=== PATIENT | male | born 1995 | race African-American/Black ===

== ENCOUNTER 2020-06-26 20:42 | Emergency (ER) | payer SELFPAY ==
[~2020-06-26] VITALS: Ht 170.2 cm; Wt 99.0 kg
[2020-06-26] MEDS ORDERED: IV RINGERS SOLUTION,LACTATED 1,000 ML IV SCH (21:01)
--- NOTE | 2020-06-26 21:01 | PHYS DOC ---
Past History Past Medical History: Anxiety Smoking: Cigarettes Alcohol Use: Occasionally Drug Use: Marijuana, Methamphetamine General Adult EDM: Chief Complaint: ANXIETY/PANIC ATTACK HPI: HPI: "I get panic attacks and anxiety but this 1 to been longer than usual I have even had some vomiting...' I usually do not go to a doctor or to the emergency room for these panic attacks have had them off and on since May..." Patient is a 24 year old male who presents with above hx and complaints of anxiety, feelings of shortness of breath, chest pain, chest tightness, nausea and vomiting. Patient denies any intake of bad food. No specific ill contacts. No history of trauma. Patient does smoke tobacco and marijuana frequently. Patient sent in to the ER to be evaluated by his mother. No recent travel outside the [place] area. No sick ill contacts. Patient does not have a specific trigger for his panic attacks Review of Systems: Review of Systems: Constitutional: Denies fever or chills Eyes: Denies change in visual acuity HENT: Denies nasal congestion or sore throat Respiratory: Complains of r shortness of breath Cardiovascular: Complains of chest pain, tightness GI: Denies abdominal pain,. Complains of nausea, vomiting,. Denies bloody stools or diarrhea : Denies dysuria Musculoskeletal: Denies back pain or joint pain Integument: Denies rash Neurologic: Denies headache, focal weakness or sensory changes Endocrine: Denies polyuria or polydipsia Lymphatic: Denies swollen glands Psychiatric: Complains of severe anxiety, panic attacks Heart Score: HEART Score for Chest Pain: HEART Score for Chest Pain Response (Comments) Value History Slighlty/Non-Suspicious 0 ECG Nonspecific Repolarizatio 1 Age < 45 0 Risk Factors 1 or 2 Risk Factors 1 Troponin < Normal Limit 0 Total 2 Risk Factors: Risk Factors: DM, Current or recent (<one month) smoker, HTN, HLP, family history of CAD, obesity. Risk Scores: Score 0 - 3: 2.5% MACE over next 6 weeks - Discharge Home Score 4 - 6: 20.3% MACE over next 6 weeks - Admit for Clinical Observation Score 7 - 10: 72.7% MACE over next 6 weeks - Early Invasive Strategies Family History: Family History: Noncontributory Current Medications: Current Meds: See nursing for home meds Allergies: Allergies: Allergic to shellfish Physical Exam: PE: Constitutional: In acute emotional distress, non-toxic appearance. [] HENT: Normocephalic, atraumatic, bilateral external ears normal, oropharynx moist, no oral exudates, nose normal. [] Eyes: PERRLA, EOMI, conjunctiva normal, no discharge. [] Neck: Normal range of motion, no tenderness, supple, no stridor. [] Cardiovascular: Tachycardia heart rate regular rhythm, no murmur [] Lungs & Thorax: Bilateral breath sounds equal apex with scattered wheezes on auscultation [] Abdomen: Bowel sounds normal, soft, no tenderness, no masses, no pulsatile masses. [] Skin: Warm, dry, no erythema, no rash. [] Back: No tenderness, no CVA tenderness. [] Extremities: No tenderness, no cyanosis, no clubbing, ROM intact, no edema. [] No cording appreciated Neurologic: Alert and oriented X 3, normal motor function, normal sensory function, no focal deficits noted. [] Psychologic: Affect very anxious, judgement normal, mood normal. [] EKG: EKG: My interpretation EKG shows a sinus tachycardia at 108 bpm. No findings of acute STEMI with contralateral changes. [] Radiology/Procedures: Radiology/Procedures: [place] [address] IMAGING REPORT Signed PATIENT: XANDER VANN ACCOUNT: [id number] : 1995 LOCATION: ER AGE: 24 SEX: M EXAM STATUS: REG ER ORD. PHYSICIAN: ANGELIC PATHAK MD REASON: OMNI 240, 30ML PO. LEFT FLANK PAIN PROCEDURE: CT ABD PEL W/ORAL CONTRST ONLY CT abdomen and pelvis without contrast: Reason for examination: Left flank pain. Helical images were obtained through the abdomen pelvis with no intravenous contrast administered. 30 cc of oral Omnipaque 240 was administered. Reconstruction was performed in sagittal and coronal planes. Exposure: One or more of the following individualized dose reduction techniques were utilized for this examination: 1. Automated exposure control 2. Adjustment of the mA and/or kV according to patient size 3. Use of iterative reconstruction technique. The lung bases are clear. The heart size is normal with no pericardial effusion. No focal abnormalities are seen at the liver, spleen, adrenal glands, gallbladder or pancreas. The abdominal aorta and inferior vena cava show no acute abnormalities. No abnormality seen at the appendix. There appear to be diverticuli in the colon but no diverticulitis or colitis is seen. The small intestinal tract shows no abnormal dilatation or wall thickening and there is no obstruction. No abnormality seen at the stomach. The kidneys show no renal masses, renal calculi, hydronephrosis or evidence of obstructive uropathy. No abnormality seen at the bladder, prostate gland or seminal vesicles. There is no evidence of free fluid or free air in the abdomen or pelvis. No acute bony abnormalities are seen. IMPRESSION: Diverticuli in the colon but no evidence of diverticulitis. No renal calculi or obstructive uropathy. No other focal abnormality seen in the abdomen or pelvis. Electronically signed by: Kristi Grove MD (06/27/2020 1:26 AM) [facility] DICTATED AND SIGNED BY: KRISTI GROVE MD DATE: 06/27/20125 CC: ANGELIC PATHAK MD; PCP,NO ~ [[address] [address] IMAGING REPORT Signed PATIENT: EDWARXANDER Paz ACCOUNT: [id number] : 1995 LOCATION: ER AGE: 24 SEX: M EXAM STATUS: REG ER ORD. PHYSICIAN: ANGELIC PATHAK MD REASON: chest tightness PROCEDURE: PORTABLE CHEST 1V Exam: Chest one view INDICATION: Chest tightness TECHNIQUE: Frontal view of the chest Comparisons: None FINDINGS: The cardiomediastinal silhouette and pulmonary vessels are within normal limits. The lung and pleural spaces are clear. IMPRESSION: No acute cardiopulmonary process. Electronically signed by: Ibeth Tena MD (06/26/2020 10:13 PM) [facility] DICTATED AND SIGNED BY: IBETH TENA MD DATE: 06/26/20 0647 CC: ANGELIC PATHAK MD; PCP,NO ~ ][address] [address] IMAGING REPORT Signed PATIENT: XANDER VANN ACCOUNT: [id number] : 1995 LOCATION: ER AGE: 24 SEX: M EXAM STATUS: REG ER ORD. PHYSICIAN: ANGELIC PATHAK MD REASON: chest tightness PROCEDURE: PORTABLE CHEST 1V Exam: Chest one view INDICATION: Chest tightness TECHNIQUE: Frontal view of the chest Comparisons: None FINDINGS: The cardiomediastinal silhouette and pulmonary vessels are within normal limits. The lung and pleural spaces are clear. IMPRESSION: No acute cardiopulmonary process. Electronically signed by: Ibeth Tena MD (06/26/2020 10:13 PM) [facility] DICTATED AND SIGNED BY: IBETH TENA MD DATE: 06/26/202212 CC: ANGELIC PATHAK MD; PCP,NO ~ Course & Med Decision Making: Course & Med Decision Making Pertinent Labs and Imaging studies reviewed. (See chart for details) Pt. to stay on clear fluid diet x 48 hrs. No solids or milk products. Must allow bowel rest. Avoid illicit drug use. Tylenol ibuprofen for pain. Follow- up labs with primary care. Keflex 500 mg 3 times a day for 7 days. Use MDI 2 puffs 4 times a day. Stop smoking. Impression: 1. Anxiety 2. Chest pain 3. Nausea and vomiting 4. Tobacco , marijuana, methamphetamine 5. Dehydration Creat 2.2/BUN 31. 6. Leukocytosis 17.6 7. Elevated Alk Phos, ALt 136/84 8. Bronchitis [] Dragon Disclaimer: Alley Disclaimer: This electronic medical record was generated, in whole or in part, using a voice recognition dictation system. Departure Departure: Disposition: HOME/RESIDENCE PRIOR TO ADM Condition: STABLE Referrals: PCP,MAGALYS (PCP) Scripts Cephalexin (KEFLEX) 500 Mg Capsule 500 MG PO TID for bronchitis for 7 Days, BOTTLE Prov: ANGELIC PATHAK MD 06/27/20 Alley Disclaimer This chart was dictated in whole or in part using Voice Recognition software in a busy, high-work load, and often noisy Emergency Department environment. It may contain unintended and wholly unrecognized errors or omissions. ANGELIC PATHAK MD Jun 26, 2020 21:01
[2020-06-26] MEDS ORDERED: ASPIRIN CHEWABLE 81 MG TABLET. PO ONE (21:15)
--- NOTE | 2020-06-26 22:16 | RAD ---
Exam: Chest one view INDICATION: Chest tightness TECHNIQUE: Frontal view of the chest Comparisons: None FINDINGS: The cardiomediastinal silhouette and pulmonary vessels are within normal limits. The lung and pleural spaces are clear. IMPRESSION: No acute cardiopulmonary process. Electronically signed by: Ibeth Alfaro MD (06/26/2020 10:13 PM) CLAUDIA
[2020-06-26 22:23] LABS: BASO # 0.1 x10^3/uL (0.0-0.2); BASO % 1 % (0-3); EOS % 0 % (0-3); HEMATOCRIT 52.5 % (39.0-53.0); HEMOGLOBIN 17.3 g/dL (13.0-17.5); LYMPH # 4.2 x10^3/uL (1.0-4.8); LYMPH % 24 % (24-48); MEAN CORPUSCULAR HEMOGLOBIN 31 pg (25-35); MEAN CORPUSCULAR HGB CONC 33 g/dL (31-37); MEAN CORPUSCULAR VOLUME 93 fL (79-100); MONO # 1.6 x10^3/uL (0.0-1.1); MONO % 9 % (0-9); NEUT # 11.6 x10^3uL (1.8-7.7); NEUT % 66 % (31-73); PLATELET COUNT 331 x10^3/uL (140-400); RED BLOOD COUNT 5.65 x10^6/uL (4.30-5.70); RED CELL DISTRIBUTION WIDTH 13.7 % (11.5-14.5); WHITE BLOOD COUNT 17.6 x10^3/uL (4.0-11.0)
[2020-06-26 22:25] LABS: BARBITURATES NEG (NEG); BENZODIAZEPINES NEG (NEG); CANNABINOIDS POS (NEG); COCAINE NEG (NEG); METHADONE NEG (NEG); OPIATES NEG (NEG); PHENCYCLIDINE NEG (NEG)
[2020-06-26 22:40] LABS: CALCIUM 11.6 mg/dL (8.5-10.1); CREATININE 2.2 mg/dL (0.7-1.3); GFR 44.7; POTASSIUM 3.7 mmol/L (3.5-5.1)
[2020-06-26 22:44] LABS: AMPHETAMINE/METHAMPHETAMINE POS (NEG)
[2020-06-26 22:46] LABS: ALBUMIN 5.3 g/dL (3.4-5.0); DIRECT BILIRUBIN 0.3 mg/dL (0.0-0.2); MAGNESIUM 2.3 mg/dL (1.8-2.4); TOTAL BILIRUBIN 0.8 mg/dL (0.2-1.0); TOTAL PROTEIN 10.4 g/dL (6.4-8.2)
[2020-06-26 23:13] LABS: CLARITY,URINE HAZY; COLOR,URINE YELLOW; GLUCOSE,URINE NEG (NEG)
[2020-06-26 23:15] LABS: BACTERIA,URINE 0 /HPF (0-FEW); BILIRUBIN,URINE NEG (NEG); NITRITE,URINE NEG (NEG); RBC,URINE OCC /HPF (0-2); SQUAMOUS EPITHELIAL CELL,UR OCC /LPF; WBC,URINE OCC /HPF (0-4)
[2020-06-26 23:16] LABS: HYALINE CASTS, URINE OCC /HPF
--- NOTE | 2020-06-26 23:19 | EKG ---
[address] [address] Test Date: 2020-06-26 Test Time: 21:11:03 Pat Name: XANDER VANN Department: Room: Gender: M [employer]: : 1995 Requested By: ANGELIC PATHAK Order Number: [id number] Reading MD: Measurements Intervals [place] Rate: 108 P: 71 AL: 138 QRS: 42 QRSD: 86 T: 66 QT: 310 QTc: 419 Interpretive Statements SINUS TACHYCARDIA OTHERWISE NORMAL ECG RI6.02 No previous ECG available for comparison
[2020-06-26] MEDS ORDERED: IOHEXOL 240 MG/ML 50ML VIAL. ONE (23:55)
[2020-06-27] MEDS ORDERED: IOHEXOL 300 MG/ML 75 ML VIAL. IV ONE (00:15)
[2020-06-27] MEDS ORDERED: CONTRAST GIVEN. MC PRN (00:15)
--- NOTE | 2020-06-27 01:28 | RAD ---
CT abdomen and pelvis without contrast: Reason for examination: Left flank pain. Helical images were obtained through the abdomen pelvis with no intravenous contrast administered. 30 cc of oral Omnipaque 240 was administered. Reconstruction was performed in sagittal and coronal planes. Exposure: One or more of the following individualized dose reduction techniques were utilized for this examination: 1. Automated exposure control 2. Adjustment of the mA and/or kV according to patient size 3. Use of iterative reconstruction technique. The lung bases are clear. The heart size is normal with no pericardial effusion. No focal abnormalities are seen at the liver, spleen, adrenal glands, gallbladder or pancreas. The abdominal aorta and inferior vena cava show no acute abnormalities. No abnormality seen at the appendix. There appear to be diverticuli in the colon but no diverticulitis or colitis is seen. The small intestinal tract shows no abnormal dilatation or wall thickening and there is no obstruction. No abnormality seen at the stomach. The kidneys show no renal masses, renal calculi, hydronephrosis or evidence of obstructive uropathy. No abnormality seen at the bladder, prostate gland or seminal vesicles. There is no evidence of free fluid or free air in the abdomen or pelvis. No acute bony abnormalities are seen. IMPRESSION: Diverticuli in the colon but no evidence of diverticulitis. No renal calculi or obstructive uropathy. No other focal abnormality seen in the abdomen or pelvis. Electronically signed by: Kristi Marcus MD (06/27/2020 1:26 AM) [facility]
[2020-06-27] MEDS ORDERED: IV RINGERS SOLUTION,LACTATED 1,000 ML IV ONE ×2 (01:45)
[2020-06-27] MEDS ORDERED: IV NORMAL SALINE 50ML 50 ML ONE (02:16)
[2020-06-27] MEDS ORDERED: cefTRIAXone SODIUM 1 GM VIAL ONE (02:17)
[2020-06-27] MEDS ORDERED: ALBUTEROL SULFATE 8GM INHALER. INH ONE (02:30)
[2020-06-27] MEDS ORDERED: CEPH-264 PO (02:39)
[2020-06-27 03:35] VITALS: BP 136/79
== END 2020-06-27 03:35 | disposition home or self-care (01) ==
LOC: ER 20:42
DX: E86.0 Dehydration (principal); D72.829 Elevated white blood cell count, unspecified; J40 Bronchitis, not specified as acute or chronic; R79.89 Other specified abnormal findings of blood chemistry; R07.89 Other chest pain; R11.2 Nausea with vomiting, unspecified; F41.9 Anxiety disorder, unspecified; F17.210 Nicotine dependence, cigarettes, uncomplicated; F12.10 Cannabis abuse, uncomplicated; F15.10 Other stimulant abuse, uncomplicated; Z91.013 Allergy to seafood
CPT/HCPCS: 36415; 71045; 74176; 80048; 80076; 80307; 81001; 82550; 83605; 83735; 84443; 84484; 85025; 85379; 87040; 93005; 94640; 96361; 96365; 96375; 99285; J0696; J2060; J7120; J7613; 94664